=== PATIENT | female | born 1990 | race Caucasian/White ===

== ENCOUNTER → 2019-02-12 16:07 | Outpatient (CLI) | payer OTHER, SELFPAY ==
[2019-02-12 17:00] LABS: Absolute Lymphocyte Count 1.63 X10^3/uL (0.83-4.51); Absolute Neutrophil Count 6.5 X10^3/uL (2.0-7.7); Basophil# 0.05 X10^3/uL; Basophil% 0.6 % (0-1); Eosinophil# 0.23 X10^3/uL; Eosinophils% 2.6 % (0-5); Hematocrit 36.5 % (37-47); Hemoglobin 12.4 g/dL (12.0-15.0); Lymphocyte # 1.63 X10^3/ul (4.0); Lymphocyte % 18.3 % (19-41); Mean Corpuscular Volume 85.3 fL (81-99); Mean Platelet Vol. 10.8 fl (6.2-12.0); Monocyte# 0.53 X10^3/uL; Monocyte% 5.9 % (0-10); NRBC Flagged by Analyzer 0 % (0-5); Neutrophil # 6.45 X10^3/uL (2.7-7.7); Neutrophil % 72.4 % (47-70); Platelet Count 219 K/mm3 (150-450); RBC Distribution Width CV 12.3 % (11.6-14.6); RBC Distribution Width SD 38.2 fl (35.1-43.9); Red Blood Count 4.28 M/mm3 (4.2-5.4); White Blood Count 8.9 K/mm3 (4.4-11.0)
[2019-02-12 17:07] LABS: Color, Urine Yellow (Yellow); Glucose, Dipstick Normal (Normal); Ketone-Dipstick 50 mg/dl (Negative); Leukocyte Esterase-Dipstick Negative /ul (Negative); Nitrite-Dipstick Negative (Negative); Occult Blood-Urine Negative /ul (Negative); Protein-Dipstick Negative (Negative); Urine Bilirubin Dipstick Negative (Negative); Urine Clarity Sl. Cloudy (Clear); Urine Urobilinogen Normal (Normal)
[2019-02-12 17:43] LABS: Thyroid Stim Hormone (TSH) 0.95 uIU/mL (0.358-3.74)
[2019-02-12 19:44] LABS: Chlamydia Trachomatis by PCR Negative (Negative); Neisserai gonorrhoeae by PCR Negative (Negative); Probe Check PASS; Sample Adequacy Control PASS; Specimen Processing Control PASS
[2019-02-13 09:34] LABS: HIV - WCH Non-Reactive (Nonreactive); Hepatitis B Surface Antigen Non-Reactive (Nonreactive); Hepatitis C Antibody Non-Reactive (Nonreactive)
[2019-02-19 01:49] LABS: Prenatal RPR NONREACTIVE (NONREACTIVE)
== END ==
PROVIDERS: Visit Provider Obstetrics & Gynecology
DX: Z34.81 Encounter for supervision of other normal pregnancy, first trimester (principal); Z12.4 Encounter for screening for malignant neoplasm of cervix; Z11.3 Encounter for screening for infections with a predominantly sexual mode of transmission
CPT/HCPCS: 36415; 81002; 84443; 85025; 86703; 86762; 86803; 87340; 87491; 87591

== ENCOUNTER → 2019-06-04 09:09 | Outpatient (CLI) | payer OTHER, SELFPAY ==
[2019-06-04 11:48] LABS: Glucose Challenge Gest 1H 50g 71 mg/dL (70-140)
[2019-06-04 11:55] LABS: Hematocrit 35.6 % (37-47); Hemoglobin 11.7 g/dL (12.0-15.0); Mean Corp Hgb Conc 32.9 g/dL (32-36); Mean Corpuscular Hgb 29.3 pg (27.0-32.0); Mean Platelet Vol. 10.9 fl (6.2-12.0); Platelet Count 220 K/mm3 (150-450); RBC Distribution Width CV 12.1 % (11.6-14.6); RBC Distribution Width SD 39.4 fl (35.1-43.9); White Blood Count 7.7 K/mm3 (4.4-11.0)
== END ==
PROVIDERS: Visit Provider Obstetrics & Gynecology
DX: Z34.83 Encounter for supervision of other normal pregnancy, third trimester (principal)
CPT/HCPCS: 36415; 82950; 85027; 86850

== ENCOUNTER → 2019-07-28 | Outpatient (CLI) | payer OTHER, SELFPAY | END | disposition home or self-care (01) | PROVIDERS: Visit Provider Obstetrics & Gynecology | DX: Z36.85 Encounter for antenatal screening for Streptococcus B (principal) | CPT/HCPCS: 87077; 87081; 87186 ==

== ENCOUNTER → 2019-08-12 13:29 | Outpatient (CLI) | payer OTHER, SELFPAY ==
[2019-08-12 13:45] LABS: Hematocrit 36.9 % (37-47); Hemoglobin 12.2 g/dL (12.0-15.0); Mean Corp Hgb Conc 33.1 g/dL (32-36); Mean Corpuscular Hgb 29.6 pg (27.0-32.0); Mean Corpuscular Volume 89.6 fL (81-99); Mean Platelet Vol. 11.3 fl (6.2-12.0); Platelet Count 251 K/mm3 (150-450); RBC Distribution Width CV 12.1 % (11.6-14.6); RBC Distribution Width SD 39.3 fl (35.1-43.9); Red Blood Count 4.12 M/mm3 (4.2-5.4)
[2019-08-12 13:56] LABS: Protein, Urine (Random) 13.8 mg/dL (<11.9)
[2019-08-12 13:57] LABS: International Normalized Ratio 0.9; Prothrombin Time (Protime)PT. 11.4 SECONDS (11.7-14.9)
[2019-08-12 14:07] LABS: AST(SGOT) 21 U/L (15-37); Alanine Aminotransfer ALT/SGPT 27 U/L (13-56); Creatinine, Serum 0.57 mg/dL (0.55-1.02); EST Glomerular Filtration Rate 134 mL/min (>60); Est Glom Filt Rate - Afr Amer 162 mL/min (>60); Uric Acid 3.5 mg/dL (2.6-6.0)
== END ==
PROVIDERS: Visit Provider Obstetrics & Gynecology
DX: O13.3 Gestational [pregnancy-induced] hypertension without significant proteinuria, third trimester (principal); O12.03 Gestational edema, third trimester
CPT/HCPCS: 36415; 82565; 82570; 84156; 84450; 84460; 84550; 85027; 85610; 85730

== ENCOUNTER 2019-08-12 18:40 | Inpatient (IN) | payer SELFPAY ==
[2019-08-12 19:15] VITALS: BP 135/98; PULSE 82; PULSE 88; TEMP 36.9; O2SAT 98
[2019-08-12 19:29] VITALS: BMI 32.8
[2019-08-12 20:02] LABS: Absolute Lymphocyte Count 1.26 X10^3/uL (0.83-4.51); Absolute Neutrophil Count 7.4 X10^3/uL (2.0-7.7); Basophil# 0.02 X10^3/uL; Basophil% 0.2 % (0-1); Eosinophil# 0.13 X10^3/uL; Eosinophils% 1.4 % (0-5); Hematocrit 34.9 % (37-47); Hemoglobin 11.6 g/dL (12.0-15.0); Lymphocyte # 1.26 X10^3/ul (4.0); Lymphocyte % 13.2 % (19-41); Mean Corp Hgb Conc 33.2 g/dL (32-36); Mean Corpuscular Volume 90.2 fL (81-99); Mean Platelet Vol. 11.6 fl (6.2-12.0); Monocyte# 0.67 X10^3/uL; NRBC Flagged by Analyzer 0 % (0-5); Neutrophil # 7.44 X10^3/uL (2.7-7.7); Neutrophil % 77.8 % (47-70); Platelet Count 241 K/mm3 (150-450); RBC Distribution Width CV 12.1 % (11.6-14.6); RBC Distribution Width SD 39.2 fl (35.1-43.9); Red Blood Count 3.87 M/mm3 (4.2-5.4); White Blood Count 9.6 K/mm3 (4.4-11.0)
[2019-08-12] MEDS: miSOPROStol 25 MCG TABLET VAGINAL (20:19)
--- NOTE | 2019-08-12 20:26 | PCM.HP.OB ---
- Problem List (1) 38 weeks gestation of Status: Acute (2) Gestational hypertension Status: Acute History Date of Admission: 08/12/19 Final CARLENE: 08/24/19 Final CARLENE Source: US <20 weeks Gestational age: 38 Weeks and 2 Days History of this : This is a 29 year-old, G [1], P [0], at 38 weeks gestational age. Allergies No Known Allergies Allergy (Verified 08/12/19 19:30) Home Medications: Home Medications Caplet 1 tab PO DAILY 08/12/19 Smoking Status: Never smoker Alcohol: None Number of Fetus(es): 1 NST - FHR Rate Baby A Baseline: 130 Variability:: Moderate Accelerations:: 15 x 15 Decelerations:: None NST Reactive:: Yes FHR Category:: Category I Uterine Activity:: 4-10minutes History Past Pregnancies: Past Pregnancies: none Labs: Mom's Labs & Results 08/12/19 08/12/19 08/12/19 19:40 19:45 19:45 WBC 9.6 RBC 3.87 L Hgb 11.6 L Hct 34.9 L MCV 90.2 MCH 30.0 MCHC 33.2 RDW Std Deviation 39.2 RDW Coeff of Joaquin 12.1 Plt Count 241 MPV 11.6 Immature Gran % (Auto) 0.400 Neut % (Auto) 77.8 H Lymph % (Auto) 13.2 L [place] % (Auto) 7.0 Eos % (Auto) 1.4 Baso % (Auto) 0.2 Absolute Neuts (auto) 7.4 Absolute Lymphs (auto) 1.26 Nucleated RBC % 0 COVID-19 ([facility]ANDO) Pending Blood Type Pending Antibody Screen Pending Course Did the patient receive Yes care? Labs Blood Type: O RH: NEGATIVE RPR/VDRL/Syphilis Nonreactive Rubella status Immune HbSAg Negative Date Done: 02/13/20 Chlamydia Negative Gonorrhea Negative HIV/AIDS Non-Reactive Group B Strep: Positive Current Obstetrical History Gestational Diabetes No Incompetent Cervix No Infertility No IUGR No Macrosomia No Hypertension/Pre-eclampsia Yes Placenta Previa/Abruption No PTL/PROM No Uterine anomaly No Oligohydramnios No Polyhydramnios No Multiple gestation No Past Medical History Asthma No Diabetes No Hypertension No Heart disease No Mitral valve prolapse No Neurologic/Seizure disorder/ No Migraines Kidney disease No Liver disease No Varicosities No Clotting disorders/Hx of DVT No Thyroid Dysfunction No Other medical diseases No Psychiatric disorders No Major trauma No Abnormal PAP smear No Sleep apnea No Mammogram in the last 2 years No Social History Marital Status: Alleged father Adrian Hx Smoking No Smoking Status Never smoker Expected Infant Delivery Method: Spontaneous Vaginal Number of Visits: 9 Review of Systems Constitutional: Denies: Chills, Fever, Weight Change HEENT: Denies: Head Aches, Sinus Congestion, Sinus Drainage Cardiovascular: Denies: Chest Pain, Palpitations Respiratory: Denies: Cough, Shortness of breath at rest, Sputum production Gastrointestinal: Denies: Abdominal Pain, Nausea, Vomiting Genitourinary: Denies: Dysuria Musculoskeletal: Denies: Joint Pain, Joint Tenderness Skin: Denies: Rash, Wounds Neurological: Denies: Numbness, Tingling, Focal weakness Psychiatric: Denies: Anxiety, Depression, Homicidal Ideations, Suicidal Ideations Hematologic/ Lymphatic: Denies: Easy Bruising, Easy Bleeding Physical Exam Vitals: Vital Signs Temp Pulse BP Pulse Ox 98.5 F 82 135/98 H 98 08/12/19 19:15 08/12/19 19:15 08/12/19 19:15 08/12/19 19:15 General: Alert, Oriented x3, No apparent distress HEENT: Atraumatic, Normocephalic. Negative for: Thyromegaly, Lymphadenopathy Cardiovascular: Regular rate, Regular Rhythm Lungs: Clear to auscultation Abdomen: Bowel Sounds Present, Gravid Neurological: Deep Tendon Reflexes 2+/4 and Symmetrical, Neuro grossly intact STRIKE PLANNING APPLICATIONS: Normal external genitalia. Negative for: Vulvar lesions Estimated gestational size: Appropriate for gestational size Presentation: Cephalic Cervix Dilation (cm): 0 Station: -3 Effacement (%): 0 Assessment/Plan All Active Problems 38 weeks gestation of (Acute) Gestational hypertension (Acute) A/P: This is a 29 year-old, G [1], P [0], at 38 weeks gestational age. IOL with Cytotec for gestational hypertension Pre-eclamptic panel negative BP 136/98, will plan Labetolol protocol as needed NST Category I reactive UC 4-10 minutes, irregular, mild Expect Procedure Criteria Procedure Type: Essential Procedure Essential: Yes Criteria Statement: On 05/26/2019 the [place] Department of [facility] ([facility]) Public Order signed by [facility] Director Dayan Castañeda M.D., regarding the Management of Non-Essential Surgeries and Procedures for the purpose of preserving Personal Protective Equipment (PPE) and critical hospital capacity and resources within [place] went into effect as of 05/27/2019 at 5:00PM. According to the [facility] Public Order: This action will remain in full force and effect until the State of Emergency declared by the Governor no longer exists or the Director of the [facility] rescinds or modifies this Order. This [facility] order stated all non-essential or elective surgeries and procedures that utilize PPE should be delayed unless there is undue risk to the current or future health of a patient. After reviewing the aforementioned [facility] Public Order and the patient's clinical case, I have determined that the scheduled procedure meets the criteria to go forward. Risk to Patient if Procedure Delayed: Risk of rapidly worsening to severe symptoms if delayed - labor-gestational hypertension
[2019-08-12 21:44] VITALS: BP 136/88; PULSE 71; PULSE 84; TEMP 36.9; O2SAT 98
[2019-08-13] VITALS (50 sets, daily range): BP systolic 114–163; BP diastolic 60–100; PULSE 58–98; RESP 16–18; TEMP 36.6–37.2; O2SAT 94–100
[2019-08-13] MEDS: miSOPROStol 50 MCG TABLET VAGINAL (00:30)
[2019-08-13] MEDS: Lactated Ringers 1,000 ML 50 ML IV (06:20)
[2019-08-13] MEDS: Lactated Ringers 500 ML 999 ML IV (06:32)
--- NOTE | 2019-08-13 06:43 | NURSING ---
Reviewed and agreed with Kari HARDING charting.
--- NOTE | 2019-08-13 07:38 | PCM.PN.OB ---
Patient Problems: Active and Suspected Problems 38 weeks gestation of (Acute) Gestational hypertension (Acute) Subjective: Feeling well, but contractions are now a 5/10 on the pain scale. Objective: Starting to breathe through contractions. UC 1.5-3m. NST baseline 135, + accels, -decels, moderate variability, Category I NST. SVE 2/50/-3 per RN report. - Physical Exam Vitals/I&O's: Vital Signs Temp Pulse BP Pulse Ox 98.0 F 68 148/85 H 100 08/13/19 07:14 08/13/19 08:37 08/13/19 08:35 08/13/19 08:32 Weight: 86.636 kg Body Mass Index (BMI) 32.8 Intake and Output for Last 24 Hours 08/11/19 08/12/19 08/13/19 23:59 23:59 23:59 Intake Total 568.33 / 568.33 Output Total 100 / 100 Balance -100 / -100 568.33 / 568.33 General: Alert, Oriented x3, Cooperative HEENT: Atraumatic, PERRLA, EOMI, Normocephalic Neck: Supple, No JVD, Negative Carotid Bruits Lungs: Clear to auscultation, Normal air movement Cardiovascular: Regular rate, No murmurs Abdomen: Bowel Sounds Present, Soft, Non Tender Extremities: No edema, Capillary Refill Less than 3 Seconds Skin: No rashes, No breakdown Musculoskeletal: No Tenderness to Palpation of Joints or Extremities Neurological: Cranial nerves II-XII grossly intact Psych/Mental Status: Normal Affect, Appropriate Laboratory Results 08/12/19 19:40: COVID-19 (ARMANDO) Negative 08/12/19 19:45: WBC 9.6, RBC 3.87 L, Hgb 11.6 L, Hct 34.9 L, MCV 90.2, MCH 30.0, MCHC 33.2, RDW Std Deviation 39.2, RDW Coeff of Joaquin 12.1, Plt Count 241, MPV 11.6, Immature Gran % (Auto) 0.400, Neut % (Auto) 77.8 H, Lymph % (Auto) 13.2 L, [place] % (Auto) 7.0, Eos % (Auto) 1.4, Baso % (Auto) 0.2, Absolute Neuts (auto) 7.4, Absolute Lymphs (auto) 1.26, Nucleated RBC % 0 08/12/19 19:45: Blood Type O NEGATIVE, Antibody Screen POSITIVE H, Antibody Identification ANTI-D Current Medications Acetaminophen (Tylenol) 325 - 650 mg PO Q4H PRN PRN PRN Reason: Pain Score 1-3/10 Al Hydroxide/Mg Hydroxide (Mylanta Ii) 15 - 30 ml PO Q4H PRN PRN PRN Reason: INDIGESTION Citric Acid/Sodium Citrate (Bicitra) 30 ml PO X1 PRN PRN Reason: Section Ephedrine Sulfate () 10 mg IV Q10M PRN PRN Reason: hypotension Ephedrine Sulfate () 10 mg IM Q30M PRN PRN Reason: hypotension Fentanyl Citrate (Sublimaze (100mcg Ampule)) 25 - 50 mcg IV Q2H PRN PRN PRN Reason: Pain Score 4-10/10 Fentanyl/Bupivacaine/Sodium Chlor () 0 ml EPIDURAL UD [facility]; Protocol Last Admin: 08/13/19 07:52 Dose: 100 ml Documented by: Lactated Ringer's () 500 mls @ 999 mls/hr IV .Q31M PRN PRN Reason: Epidural Lactated Ringer's () 500 mls @ 999 mls/hr IV .Q31M PRN PRN Reason: Corrective Measures Last Infusion: 08/13/19 07:09 Dose: Infused Documented by: Lactated Ringer's () 1,000 mls @ 50 mls/hr IV .Q20H DB Last Infusion: 08/13/19 07:42 Dose: 200 mls/hr Documented by: Naloxone HCl 4 mg/ Dextrose 504 mls @ 0 mls/hr IV .Q0M PRN; Protocol PRN Reason: To maintain Resp. rate >10 Nalbuphine HCl (Nubain) 5 mg IV Q3H PRN PRN PRN Reason: ITCHING Naloxone HCl (Narcan) 0.02 mg IV Q1M PRN PRN Reason: RR< 10 AND PT UNRESPONSIVE Ondansetron HCl (Zofran) 4 mg IV Q4H PRN PRN PRN Reason: NAUSEA Prochlorperazine Edisylate (Compazine Iv) 10 mg IV Q6H PRN PRN PRN Reason: NAUSEA Sodium Chloride () 10 - 40 ml IV X1 PRN PRN Reason: SALINE FLUSH Medical Necessity - Tobacco Use Smoking Status: Never smoker Assessment/Plan All Active Problems 38 weeks gestation of (Acute) Gestational hypertension (Acute) A/P: Here at 38 weeks for IOL r/t gestational hypertension After two doses of Cytotec having UC on her own SVE /3 Will plan to AROM after eating breakfast Plans in place for NVD
[2019-08-13] MEDS: fentaNYL-bupivacaine (epidural) 100 ML BAG EPIDURAL (07:52)
[2019-08-13] MEDS: Oxytocin 30 units/NS 500 ml 30 UNITS/500 ML IV.SOLN 334 UNITS IV (10:10)
--- NOTE | 2019-08-13 10:51 | PCM.OPRPT ---
Problem List (1) 38 weeks gestation of Status: Acute (2) Gestational hypertension Status: Acute Qualifiers: Trimester: third trimester Qualified Code(s): O13.3 - Gestational [-induced] hypertension without significant proteinuria, third trimester Vaginal Delivery Maternal Presentation: Medically Indicated Induction Method of Induction: Cytotec Medical Reason for Induction: Gestational Hypertension Amniotic Membrane Rupture Type: Spontaneous Amniotic Fluid Description: Clear Final CARLENE: 08/24/19 Final CARLENE Source: US <20 weeks Gestational age: 38 Weeks and 3 Days Date of Procedure: 08/13/19 Pre-Operative Diagnosis: IOL, Gestational Hypertension Post-Operative Diagnosis: S/P Surgery/ Procedure Performed: Spontaneous Vaginal Delivery Type of Anesthesia: Epidural Description of Procedure: Patient was FD at +2 station with spontaneous urge to push. She pushed well to deliver head in OA to GEO, followed immediately by body. The was placed on the maternal abdomen. The cord was doubly clamped and cut by FOB under CNM supervision at approximately 2 minutes of life and further attended by nursery personnel. Cord blood was obtained. With gentle traction the placenta delivered spontaneously and appeared intact on inspection with a three vessel cord. Second degree perineal laceration with extension to the right and left vaginal floor noted. Repaired with one 3.0 double rapide and one 3.0 vicryl. Good hemostasis noted. EBL 350. Apgars 8/9. Sponge and needle counts correct x 2. Attending MD: Dr. Lambert Presentation: Vertex, GEO Placental Delivery Description: Spontaneous Placenta Disposition: [facility] Cord Vessel Description: 3 Vessels Cord Entanglement: Around neck x 1, loose Drain: Mcgrath to straight drain Estimated Blood Loss: 250 A gender: Male (1 minute): 8 (5 minute): 9 Episiotomy Description: None Laceration: Perineal Extension/lac, 2nd degree Medications given after delivery: IV Pitocin
[2019-08-13] MEDS: Methylergonovine 0.2 MG/ML Ampul IM (11:24)
[2019-08-14 00:20] VITALS: BP 122/81; PULSE 87; RESP 18; TEMP 36.7
[2019-08-14 04:00] VITALS: BP 108/71; BP 133/71; PULSE 84; RESP 18; TEMP 36.3
[2019-08-14 08:16] VITALS: BP 127/92; BP 134/91; PULSE 73; RESP 18; TEMP 36.6; O2SAT 96
--- NOTE | 2019-08-14 08:32 | DCINST_ITS ---
Discharge Diet: No Restrictions Discharge Activity: Return to Normal Activity, May not drive while taking narcotic pain medications., May Shower May resume sexual activity in: 4-6 weeks Additional Activity Instructions:: Nothing in the vagina for 4-6 weeks. You may return to work/school in 6 weeks. Call your doctor if your incision/area has: Continuous Slow Oozing, Sudden Increased Bleeding, Increased Pain/ Swelling, Increased Redness, Foul Smelling Discharge Additional Instructions: If you experience any of the following, contact your healthcare provider. * Bleeding that soaks a pad every hour for 2 hours * Fever 100.4 or higher * Unrelieved incision or abdominal pain * Swelling, redness, discharge or bleeding from your incision or episiotomy site * Your incision begins to separate * Problems urinating (including inability to urinate or burning while urinating). * Visual changes * Severe headache * Flu-like symptoms * Pain or redness in one of both of your breasts * Pain, warmth, tenderness or swelling in your legs, especially the calf area * Frequent nausea and vomiting * Symptoms of depression or anxiety If you experience any of the following, call 911 or go to the nearest Emergency Room. * Chest pain * Problems breathing * Seizure activity * Partial or complete paralysis of a body part, slurred speech, weakness or drooping of the face, or a sudden inability to walk or hold your balance Allergies/Adverse Reactions: Allergies No Known Allergies Allergy (Verified 08/12/19 19:30) Medications to take at Discharge Caplet 1 tab PO DAILY 08/12/19 Please Follow Up With: Patrica Oh CNM When: Call to make an appointment with your CNM for a 2 week telehealth appt and a 6 week routine appt. Primary Care Physician: Care Physician,No Primary [Primary Care Provider] - Test Results: Test results from this visit will be discussed in further detail at your follow- up appointment, if applicable.
--- NOTE | 2019-08-14 08:34 | PCM.PN.OB ---
Patient Problems: Active and Suspected Problems 38 weeks gestation of (Acute) Gestational hypertension (Acute) Subjective: Feeling a lot better this morning after resting. Reports mild vaginal pain controlled with Tucks pads and Motrin. Denies heavy bleeding or pain. male infant with good latch. No concerns and if son is able to discharge today she would like to discharge as well. Objective: VSS. Fundus at u, firm, midline. Lochia rubra scant. - Physical Exam Vitals/I&O's: Vital Signs Temp Pulse Resp BP Pulse Ox 97.9 F 73 18 134/91 H 96 08/14/19 08:16 08/14/19 08:16 08/14/19 08:16 08/14/19 08:16 08/14/19 08:16 Oxygen Delivery Method Room Air Weight: 86.636 kg Body Mass Index (BMI) 32.8 Intake and Output for Last 24 Hours 08/12/19 08/13/19 08/14/19 23:59 23:59 23:59 Intake Total 2166.66 / 2166.66 Output Total 100 / 100 2450 / 2450 Balance -100 / -100 -283.34 / -283.34 General: Alert, Oriented x3, Cooperative HEENT: Atraumatic, PERRLA, EOMI, Normocephalic Neck: Supple, No JVD, Negative Carotid Bruits Lungs: Clear to auscultation, Normal air movement Cardiovascular: Regular rate, No murmurs Abdomen: Bowel Sounds Present, Soft, Non Tender, Passing Flatus, - - fundus at u Extremities: No edema, Capillary Refill Less than 3 Seconds Skin: No rashes, No breakdown Musculoskeletal: No Tenderness to Palpation of Joints or Extremities Neurological: Cranial nerves II-XII grossly intact Psych/Mental Status: Normal Affect, Appropriate Laboratory Results 08/13/19 13:55: Screen NEGATIVE, Baby's Blood Type A POSITIVE, Baby's AURELIA NEGATIVE Current Medications Acetaminophen (Tylenol) 1,000 mg PO Q8H PRN PRN PRN Reason: Pain Score 1-3/10 Bisacodyl (Dulcolax) 10 mg RECTAL UD PRN PRN Reason: If no BM Hydrocortisone (Hytone) 1 applic TOPICAL TID PRN PRN; Protocol PRN Reason: Discomfort Ibuprofen (Motrin) 600 mg PO Q6H PRN PRN PRN Reason: Pain Score 1-3/10 Methylergonovine Maleate (Methergine) 0.2 mg IM X1 PRN PRN Reason: Excess bleeding/uterine atony Last Admin: 08/13/19 11:24 Dose: 0.2 mg Documented by: Ondansetron HCl (Zofran) 4 mg IV Q4H PRN PRN PRN Reason: Nausea Oxycodone HCl (Oxyir) 5 - 10 mg PO Q4H PRN PRN PRN Reason: Pain Score 4-10/10 Senna/Docusate Sodium (Senokot-S, [place]-Colace) 1 - 2 tablet PO DAILY PRN PRN PRN Reason: Constipation Simethicone (Mylicon) 80 mg PO PCHS PRN PRN Reason: Indigestion/Stomach pain Sodium Chloride () 5 - 15 ml IV UD PRN PRN Reason: SALINE FLUSH Throat Lozenges (Dermoplast (Sp)) 1 applic TOPICAL 4X/DAY PRN PRN; Protocol PRN Reason: Pain/Inflammation Medical Necessity - Tobacco Use Smoking Status: Never smoker Assessment/Plan All Active Problems 38 weeks gestation of (Acute) Gestational hypertension (Acute) A/P: s/p day #1 after induction for gestational hypertension BP remains stable Normal involution and course Continue Motrin, Tucks and Ice for vaginal discomfort male Would like to discharge today if son is able Educated on increased bleeding/cramping, milk coming in with engorgement vs mastitis, and signs of depression To have telehealth appt in 2 weeks and routine PP visit in 6 weeks
[2019-08-14 13:40] VITALS: BP 123/82; PULSE 75; RESP 16; TEMP 36.8; O2SAT 96
[2019-08-14 21:38] VITALS: BP 122/79; PULSE 69; RESP 16; TEMP 36.7
[2019-08-15 01:45] VITALS: BP 137/90; PULSE 83; RESP 16; TEMP 37
[2019-08-15 08:02] VITALS: BP 135/89; PULSE 78; RESP 16; TEMP 36.6; O2SAT 98
[2019-08-15] MEDS: Ibuprofen 600 MG Tablet PO (08:09)
== END 2019-08-15 10:00 | disposition home or self-care (01) | DRG 807 ==
PROVIDERS: Admitting Provider Obstetrics & Gynecology; Referring Provider Obstetrics & Gynecology; Visit Provider Obstetrics & Gynecology
DX: O13.3 Gestational [pregnancy-induced] hypertension without significant proteinuria, third trimester (principal); Z37.0 Single live birth; O70.1 Second degree perineal laceration during delivery; Z3A.38 38 weeks gestation of pregnancy
CPT/HCPCS: 59025; 59050; 85025; 85461; 86850; 86870; 86900; 86901; 87635; 90384; 94799; 99218; J7120; G0378; J2790; U0003